=== PATIENT | female | born 1985 | race Caucasian/White ===

== ENCOUNTER 2016-12-24 20:30 | Inpatient (IN) | payer MEDICAID ==
[~2016-12-24] VITALS: Ht 175.3 cm; Wt 84.5 kg
[2016-12-24] MEDS ORDERED: OXYTOCIN 30U/ 0.9% NaCL 500ML 500 ML IV ONE (22:15)
[2016-12-24] MEDS ORDERED: NEWBORN KIT ONE (22:17)
[2016-12-24] MEDS ORDERED: OXYTOCIN 30U/ 0.9% NaCL 500ML 500 ML ONE (22:17)
[2016-12-24] MEDS ORDERED: FENTANYL PF 100 MCG/2ML IV PRN (22:30)
[2016-12-24] MEDS ORDERED: ONDANSETRON 2MG/ML, 2ML IVPush PRN (22:30)
[2016-12-24] MEDS ORDERED: TERBUTALINE 1 MG/ML, 1ML SQ PRN (22:30)
[2016-12-24] MEDS ORDERED: FENTANYL PF 100 MCG/2ML IVPush PRN (22:30)
[2016-12-24] MEDS ORDERED: CEFAZOLIN PMX 2GM/50ML 50 ML IVPB ONE (22:30)
[2016-12-24] MEDS: CEFAZOLIN PMX 1GM/50ML 50 ML IVPB SCH (22:30)
[2016-12-24 22:52] VITALS: BP 104/72
[2016-12-24] MEDS ORDERED: LIDOCAINE 1%, 20ML ONE (23:06)
[2016-12-24] MEDS ORDERED: MISOPROSTOL 200 MCG TABLET ONE (23:07)
[2016-12-24] MEDS: LACTATED RINGERS 1,000 ML IV SCH (23:24)
[2016-12-25] MEDS: OXYTOCIN 30U/ 0.9% NaCL 500ML 500 ML IV SCH ×3 (01:23→21:23)
[2016-12-25] MEDS ORDERED: MISOPROSTOL 200 MCG TABLET PR PRN (01:30)
[2016-12-25] MEDS ORDERED: DOCUSATE 100 MG CAPSULE PO PRN (01:30)
[2016-12-25] MEDS ORDERED: IBUPROFEN 600 MG TABLET PO PRN (01:30)
[2016-12-25] MEDS ORDERED: ONDANSETRON 2MG/ML, 2ML IV PRN (01:30)
[2016-12-25] MEDS ORDERED: OXYcodone/APAP 5/325MG TABLET PO PRN ×2 (01:30)
[2016-12-25] MEDS ORDERED: ACETAMINOPHEN 325 MG TABLET PO PRN (01:30)
[2016-12-25] MEDS ORDERED: OXYTOCIN 30U/ 0.9% NaCL 500ML 500 ML ONE (02:04)
[2016-12-25 03:10] VITALS: BP 108/63
[2016-12-25] MEDS: LACTATED RINGERS 1,000 ML IV SCH (06:15)
[2016-12-25] MEDS: CEFAZOLIN PMX 1GM/50ML 50 ML IVPB SCH (06:30)
[2016-12-25 07:22] VITALS: BP 105/54
[2016-12-25] MEDS: PRENATAL VIT/IRON/FA 1 EACH TABLET PO SCH (07:22)
[2016-12-25 12:14] VITALS: BP 105/65
[2016-12-25 19:35] VITALS: BP 112/66
[2016-12-26 00:30] VITALS: BP 114/69
[2016-12-26] MEDS: OXYTOCIN 30U/ 0.9% NaCL 500ML 500 ML IV SCH (07:23)
[2016-12-26 07:35] VITALS: BP 102/54
[2016-12-26] MEDS: PRENATAL VIT/IRON/FA 1 EACH TABLET PO SCH (09:00)
== END 2016-12-26 17:44 | disposition home or self-care (01) | DRG 775 ==
LOC: LDOP 20:30 → EDIP 22:23 → LDIP 22:31 → 2NW 12-25 02:41
PROVIDERS: ADMIT Obstetrics & Gynecology Maternal & Fetal Medicine; ATTEND Obstetrics & Gynecology Maternal & Fetal Medicine
PROC: 10E0XZZ Delivery of Products of Conception, External Approach (ICD-10-PCS; principal; 2016-12-25)
PROC: 0KQM0ZZ Repair Perineum Muscle, Open Approach (ICD-10-PCS; 2016-12-25)
DX: O99.824 Streptococcus B carrier state complicating childbirth (principal); Z37.0 Single live birth; O77.0 Labor and delivery complicated by meconium in amniotic fluid; Z3A.40 40 weeks gestation of pregnancy; Z88.0 Allergy status to penicillin; O70.1 Second degree perineal laceration during delivery
CPT/HCPCS: 36415; 85025; 86850; 86900; J0690; J7120